=== PATIENT | female | born 1970 | race Caucasian/White ===

== ENCOUNTER 2017-09-29 06:14 | Emergency (ER) | payer OTHER, BC ==
[2017-09-29 07:31] LABS: ADD MAN DIFF? NO
[2017-09-29] MEDS: ONDANSETRON PF 4 MG/2 ML VIAL. IV (07:33)
[2017-09-29 07:44] LABS: BASO % 0 % (0-3); EOS % 1 % (0-3); HEMATOCRIT 41.4 % (36.0-47.0); HEMOGLOBIN 13.7 g/dL (12.0-15.5); LYMPH # 1.1 x10^3/uL (1.0-4.8); LYMPH % 17 % (24-48); MEAN CORPUSCULAR HEMOGLOBIN 30 pg (25-35); MEAN CORPUSCULAR HGB CONC 33 g/dL (31-37); MEAN CORPUSCULAR VOLUME 90 fL (79-100); MONO % 7 % (0-9); NEUT % 75 % (31-73); PLATELET COUNT 195 x10^3/uL (140-400); RED BLOOD COUNT 4.59 x10^6/uL (3.50-5.40); WHITE BLOOD COUNT 6.5 x10^3/uL (4.0-11.0)
[2017-09-29 07:45] LABS: ANION GAP 15 (6-14); BLOOD UREA NITROGEN 16 mg/dL (7-20); BUN/CREATININE RATIO 20 (6-20); CALCIUM 7.7 mg/dL (8.5-10.1); CARBON DIOXIDE 21 mmol/L (21-32); CHLORIDE 104 mmol/L (98-107); CREATININE 0.8 mg/dL (0.6-1.0); GFR 77.6; GLUCOSE 142 mg/dL (70-99); POTASSIUM 3.6 mmol/L (3.5-5.1); SODIUM 140 mmol/L (136-145)
[2017-09-29] MEDS ORDERED: CONTRAST GIVEN MC (07:45)
[2017-09-29 07:48] LABS: C-REACTIVE PROTEIN 24.2 mg/L (0-3.3)
[2017-09-29 07:49] LABS: BILIRUBIN,URINE SMALL (NEG); GLUCOSE,URINE NEGATIVE (NEG); NITRITE,URINE NEGATIVE (NEG); PH,URINE 5.5; PROTEIN,URINE 30 mg/dL (NEG-TRACE)
[2017-09-29 07:52] LABS: ALBUMIN 3.4 g/dL (3.4-5.0); ALBUMIN/GLOBULIN RATIO 0.9 (1.0-1.7); ALK PHOS 75 U/L (46-116); ALT (SGPT) 14 U/L (14-59); AST (SGOT) 12 U/L (15-37); TOTAL BILIRUBIN 0.3 mg/dL (0.2-1.0); TOTAL PROTEIN 7.3 g/dL (6.4-8.2)
[2017-09-29 07:53] LABS: NEG OBC UR NEG; POS OBC UR POS
[2017-09-29 08:01] LABS: BACTERIA,URINE 0 /HPF (0-FEW); RBC,URINE 0 /HPF (0-2); SQUAMOUS EPITHELIAL CELL,UR FEW /LPF; WBC,URINE 0 /HPF (0-4)
[2017-09-29] MEDS: IOHEXOL 240 MG/ML 50ML VIAL. PO (08:46)
[2017-09-29] MEDS: IOHEXOL 300 MG/ML 100ML VIAL. IV (08:47)
== END 2017-09-29 09:54 | disposition home or self-care (01) ==
LOC: ER 06:14
DX: N13.2 Hydronephrosis with renal and ureteral calculous obstruction (principal); K21.9 Gastro-esophageal reflux disease without esophagitis
CPT/HCPCS: 36415; 74177; 80053; 81001; 81025; 85025; 86140; 96374; 99285-25; J2405; Q9966; Q9967